=== PATIENT | female | born 1970 | race American Indian/Alaskan Native ===

== ENCOUNTER 2018-07-08 21:35 | Emergency (ER) | payer BC ==
[2018-07-08] MEDS ORDERED: Lidocaine 5% Patch TD STA (23:49)
--- NOTE | 2018-07-09 00:29 | ED PDOC ---
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 Patient states she went to her PMD on and was prescribed Flexeril, which she had been taking with some improvement. Patient states she then went to [facility] ER for similar pain and was given Valium. Patient has also been taking Gabapentin. Patient states despite taking the medications, she still has left neck pain radiating down her arm with some numbness. Otherwise, patient denies any headache, fever, URI symptoms, chest pain, shortness of breath, back pain, weakness, or any other complaints. Symptom Onset: Gradual Symptom Course: Unchanged Activities at Onset: Light Context: Home <Chantell Toney PA-C - Last Filed: 07/09/18 01:12> - General Chief Complaint: Upper Extremity Problem/Injury Time Seen by Provider: 07/08/18 22:41 Past Medical History - Provider Review Nursing Documentation Reviewed: Yes - Infectious Disease Hx of Infectious Diseases: None - Psychiatric Hx Substance Use: No - Surgical History Hx Hysterectomy: Yes - Anesthesia Hx Anesthesia: Yes Hx Anesthesia Reactions: No Hx Malignant Hyperthermia: No <Chantell Toney PA-C - Last Filed: 07/09/18 01:12> Family/Social History - Physician Review Nursing Documentation Reviewed: Yes Family/Social History: Unknown Family HX Smoking Status: Former Smoker Hx Alcohol Use: Yes Frequency of alcohol use: Socially Hx Substance Use: No <Chantell Toney PA-C - Last Filed: 07/09/18 01:12> Allergies/Home Meds <Nimesh Moyer - Last Filed: 07/09/18 00:36> <Chantell Toney PA-C - Last Filed: 07/09/18 01:12> Allergies/Adverse Reactions: Allergies No Known Allergies Allergy (Verified 07/08/18 22:56) Home Medications: Home Meds Medication Instructions Recorded Confirmed Cyclobenzaprine [Flexeril] 1 tab PO TID 07/08/18 07/08/18 Gabapentin [Neurontin] 1 tab PO TID 07/08/18 07/08/18 diaZEpam [Valium] 1 tab PO TID PRN 07/08/18 07/08/18 Review of Systems - Physician Review All systems were reviewed & negative as marked: Yes - Review of Systems Constitutional: absent: Fevers ENT: absent: Sore Throat Respiratory: absent: SOB Cardiovascular: absent: Chest Pain Musculoskeletal: Neck Pain. absent: Back Pain Neurological: absent: Headache, Dizziness, Focal Weakness <Chantell Toney PA-C - Last Filed: 07/09/18 01:12> Physical Exam Vital Signs Temp Pulse Resp BP Pulse Ox 07/08/18 22:52 98.1 F 83 18 147/77 99 <Nimesh Moyer - Last Filed: 07/09/18 00:36> Vital Signs Reviewed: Yes Vital Signs Temp Pulse Resp BP Pulse Ox 07/08/18 22:52 98.1 F 83 18 147/77 99 Temperature: Afebrile Blood Pressure: Normal Pulse: Regular Respiratory Rate: Normal Appearance: Positive for: Well-Appearing, Non-Toxic, Comfortable Pain Distress: Moderate Mental Status: Positive for: Alert and Oriented X 3 - Systems Exam Head: Present: Atraumatic, Normocephalic Pupils: Present: PERRL Extroacular Muscles: Present: EOMI Conjunctiva: Present: Normal Mouth: Present: Moist Mucous Membranes Neck: Present: Paraspinal Tenderness (Left paracervical tenderness). No: Meningeal Signs, MIDLINE TENDERNESS, Lymphadenopathy Respiratory/Chest: Present: Clear to Auscultation, Good Air Exchange. No: Respiratory Distress, Accessory Muscle Use Cardiovascular: Present: Regular Rate and Rhythm, Normal S1, S2. No: Murmurs Abdomen: No: Tenderness, Distention, Peritoneal Signs Back: Present: Normal Inspection Upper Extremity: Present: Normal Inspection. No: Cyanosis, Edema Lower Extremity: Present: Normal Inspection. No: Edema Neurological: Present: GCS=15, CN II-XII Intact, Speech Normal, Motor Func Grossly Intact, Normal Sensory Function Skin: Present: Warm, Dry, Normal Color. No: Rashes Psychiatric: Present: Alert, Oriented x 3, Normal Insight, Normal Concentration <Chantell Toney PA-C - Last Filed: 07/09/18 01:12> Medical Decision Making - Medication Orders Current Medication Orders: Discontinued Medications Diazepam (Valium) 5 mg PO ONCE ONE; Protocol Stop: 07/08/18 23:50 Last Admin: 07/09/18 00:03 Dose: 5 mg Ketorolac Tromethamine (Toradol) 60 mg IM STAT STA Stop: 07/08/18 23:50 Last Admin: 07/09/18 00:03 Dose: 60 mg MAR Pain Assessment Document 07/09/18 00:03 [facility] (Rec: 07/09/18 00:04 [facility] [id number]) Pain Reassessment Is this a pain reassessment? No Sleep Is patient sleeping during reassessment? No Presence of Pain Presence of Pain Yes Pain Scale Used Protocol: PSCALES Pain Scale Used Numeric Location Left, Right or Bilateral Left Pain Location Body Site Neck Shoulder Description Description Sharp Intensity of Pain at present 9 Acceptable Level of Pain 0 Pain Behavior Moaning Facial Grimacing Aggravating Factors ADL's IM Administration Charges Document 07/09/18 00:03 [facility] (Rec: 07/09/18 00:04 [facility] [id number]) Injection Site MAR Injection Site Right Deltoid Charges for Administration # of IM Administrations 0 Lidocaine (Lidoderm) 1 ea TD STAT STA Stop: 07/08/18 23:50 Last Admin: 07/09/18 00:04 Dose: 1 ea MAR Transdermal Patch Site Document 07/09/18 00:04 [facility] (Rec: 07/09/18 00:04 [facility] [id number]) Transdermal Patch Site Transdermal Patch Site Left Shoulder <Nimesh Moyer - Last Filed: 07/09/18 00:36> ED Course and Treatment: 07/09/18 00:26 Impression: 47 year old female complaining neck pain. Plan: -- Valium -- Toradol -- Lidoderm -- Reassess and disposition Progress Notes: On reevaluation, patient reports improvement of symptoms, denies any CP, SOB, headache, or weakness. On exam, patient remains awake alert and oriented 3 in no acute distress. Repeat neuro exam shows no focal findings. Advised to follow up with primary care physician and neuro referral provided in 1-2 days without fail. Advised to take medication as prescribed and to continue to take flexeril or valium for muscle spasm. Return to the emergency room at any time for any new or worsening symptoms. Patient states she fully agrees with and understands discharge instructions. States that she agrees with the plan and disposition. Verbalized and repeated discharge instructions and plan. I have given the patient opportunity to ask any additional questions. - Medication Orders Current Medication Orders: Discontinued Medications Diazepam (Valium) 5 mg PO ONCE ONE; Protocol Stop: 07/08/18 23:50 Last Admin: 07/09/18 00:03 Dose: 5 mg Ketorolac Tromethamine (Toradol) 60 mg IM STAT STA Stop: 07/08/18 23:50 Last Admin: 07/09/18 00:03 Dose: 60 mg MAR Pain Assessment Document 07/09/18 00:03 [facility] (Rec: 07/09/18 00:04 [facility] [id number]) Pain Reassessment Is this a pain reassessment? No Sleep Is patient sleeping during reassessment? No Presence of Pain Presence of Pain Yes Pain Scale Used Protocol: PSCALES Pain Scale Used Numeric Location Left, Right or Bilateral Left Pain Location Body Site Neck Shoulder Description Description Sharp Intensity of Pain at present 9 Acceptable Level of Pain 0 Pain Behavior Moaning Facial Grimacing Aggravating Factors ADL's IM Administration Charges Document 07/09/18 00:03 R (Rec: 07/09/18 00:04 [facility] [id number]) Injection Site MAR Injection Site Right Deltoid Charges for Administration # of IM Administrations 0 Lidocaine (Lidoderm) 1 ea TD STAT STA Stop: 07/08/18 23:50 Last Admin: 07/09/18 00:04 Dose: 1 ea MAR Transdermal Patch Site Document 07/09/18 00:04 R (Rec: 07/09/18 00:04 [facility] [id number]) Transdermal Patch Site Transdermal Patch Site Left Shoulder <Chantell Toney PA-C - Last Filed: 07/09/18 01:12> - PA / MANAGER HOSPITALITY / Resident Statement MIRNA has reviewed & agrees with the documentation as recorded. MIRNA has examined the patient and agrees with the treatment plan. <Nimesh Moyer - Last Filed: 07/09/18 00:36> - PA / MANAGER HOSPITALITY / Resident Statement MIRNA has reviewed & agrees with the documentation as recorded. - Scribe Statement The provider has reviewed the documentation as recorded by the Shirley Landry Provider Scribe Attestation: All medical record entries made by the [place]rib[facility] were at my direction and personally dictated by me. I have reviewed the chart and agree that the record accurately reflects my personal performance of the history, physical exam, medical decision making, and the department course for this patient. I have also personally directed, reviewed, and agree with the discharge instructions and disposition. <Chantell Toney PA-C - Last Filed: 07/09/18 01:12> Disposition/Present on Arrival <Nimesh Moyer - Last Filed: 07/09/18 00:36> - Present on Arrival Any Indicators Present on Arrival: No History of DVT/PE: No History of Uncontrolled Diabetes: No Urinary Catheter: No History of Decub. Ulcer: No History Surgical Site Infection Following: None - Disposition Have Diagnosis and Disposition been Completed?: Yes Disposition Time: 01:00 Patient Plan: Discharge <Chantell Toney PA-C - Last Filed: 07/09/18 01:12> - Disposition Diagnosis: Neck pain Disposition: HOME/ ROUTINE Patient Problems: Current Active Problems Problem Status Onset Neck pain Acute Condition: STABLE Discharge Instructions (ExitCare): Neck Pain Additional Instructions: Thank you for letting us take care of you today. You were treated for neck pain. The emergency medical care you received today was directed at your acute symptoms. If you were prescribed any medication, please fill it and take as directed. It may take several days for your symptoms to resolve. Return to the Emergency Department if your symptoms worsen, do not improve, or if you have any other problems. Please contact your doctor in 2 days for re-evaluation and follow up / or call one of the physicians/clinics you have been referred to that are listed on the Patient Visit Information form that is included in your discharge packet. Bring any paperwork you were given at discharge with you along with any medications you are taking to your follow up visit. Our treatment cannot replace ongoing medical care by a primary care provider (PCP) outside of the emergency department. Thank you for allowing the [facility] team to be part of your care today. Prescriptions: Lidocaine 5% [Lidoderm] 1 ea TD Q12H PRN #20 patch PRN Reason: Pain, Moderate (4-7) Meloxicam [Mobic] 15 mg PO DAILY #20 tab Referrals: Anthony Parra DO [Primary Care Provider] - Follow up with primary Andrea Garcias MD [Staff Provider] - Follow up with primary Forms: [employer] (Hungarian), WORK NOTE
[2018-07-09 01:22] VITALS: BP 131/73; PULSE 76; RESP 17; TEMP 98.4; O2SAT 97
== END 2018-07-09 01:23 | disposition home or self-care (01) ==
LOC: ED 21:35
DX: M54.2 Cervicalgia (principal)
CPT/HCPCS: 99283; J1885